=== PATIENT | male | born 1990 | race African-American/Black ===

== ENCOUNTER 2019-10-25 16:23 | Emergency (ER) | payer SELFPAY ==
[~2019-10-25] VITALS: Ht 180.3 cm; Wt 64.0 kg
[2019-10-25 16:29] VITALS: BP 116/70
== END 2019-10-25 19:12 | disposition left against medical advice (07) ==
LOC: ER 16:23
DX: R68.89 Other general symptoms and signs (principal); Z53.21 Procedure and treatment not carried out due to patient leaving prior to being seen by health care provider

== ENCOUNTER 2021-05-11 09:20 | Emergency (ER) | payer SELFPAY ==
[~2021-05-11] VITALS: Ht 175.3 cm; Wt 63.3 kg
[2021-05-11 09:57] VITALS: BP 129/78
[2021-05-12] MEDS ORDERED: LACT1CAP78 MT (10:32)
[2021-05-12] MEDS ORDERED: LOPE2CAP MT (10:40)
== END 2021-05-11 14:59 | disposition left against medical advice (07) ==
LOC: ER 09:20
DX: R19.7 Diarrhea, unspecified (principal); R10.9 Unspecified abdominal pain
CPT/HCPCS: 99281

== ENCOUNTER 2021-05-12 07:37 | Emergency (ER) | payer SELFPAY ==
[~2021-05-12] VITALS: Ht 175.3 cm; Wt 63.0 kg
[2021-05-12 07:49] VITALS: BP 130/83
[2021-05-12 09:47] LABS: BASOPHILS % 0.6 % (0.0-2.0); EOSINOPHILS % 3.1 % (0.0-5.0); HEMOGLOBIN. 16.2 g/dL (14.0-18.0); LYMPHOCYTES % 31.5 % (20.0-50.0); MEAN PLATELET VOLUME 7.8 fl (7.4-10.4); MONOCYTES % 13.1 % (2.0-8.0); NEUTROPHILS % 51.7 % (40.0-76.0); PLATELET 260 x1000/uL (130-400); RED BLOOD CELL COUNT 5.39 mill/uL (4.7-6.1)
[2021-05-12 09:50] LABS: CHLORIDE 104 mEq/L (98-107)
[2021-05-12] MEDS ORDERED: LACT1CAP78 MT (10:32)
[2021-05-12] MEDS ORDERED: LOPE2CAP MT (10:40)
== END 2021-05-12 10:53 | disposition home or self-care (01) ==
LOC: ER 07:37
DX: R19.7 Diarrhea, unspecified (principal)
CPT/HCPCS: 36415; 80053; 85025; 99283